=== PATIENT | male | born 1965 ===

== ENCOUNTER → 2018-02-12 | Outpatient (CLI) | payer BC ==
[2018-02-12 18:14] LABS: BLOOD UREA NITROGEN 14 mg/dl (7-18); CALCIUM 8.9 mg/dl (8.5-10.1); CARBON DIOXIDE 28 mmol/L (21-32); CHOLESTEROL 179 mg/dl (0-200); CREATININE 1.08 mg/dl (0.60-1.40); GLUCOSE 102 mg/dl (70-99); LDL CHOLESTEROL CALCULATED 93 mg/dl; POTASSIUM 3.9 mmol/L (3.5-5.1); SODIUM 140 mmol/L (136-145)
== END | disposition home or self-care (01) ==
LOC: C.LABMFLN 12:36
PROVIDERS: ATTEND Family Medicine
DX: I10 Essential (primary) hypertension (principal); Z12.5 Encounter for screening for malignant neoplasm of prostate; Z13.220 Encounter for screening for lipoid disorders